=== PATIENT | male | born 2000 | race Caucasian/White ===

== ENCOUNTER 2021-06-15 04:40 | Emergency (ER) | payer MEDICAID ==
[~2021-06-15] VITALS: Ht 172.7 cm; Wt 84.0 kg
[2021-06-15 04:49] VITALS: BP 168/95
[2021-06-15] MEDS ORDERED: FLUORESCEIN SODIUM 1MG/STRIP LEFTEYE ONE (05:15)
[2021-06-15] MEDS ORDERED: TETRACAINE 0.5% OPHTH DROPS 4ML LEFTEYE ONE (05:15)
[2021-06-15] MEDS ORDERED: ERYT1OIN6 LEFTEYE (05:34)
== END 2021-06-15 06:25 | disposition home or self-care (01) ==
LOC: ER 04:40
DX: H00.14 Chalazion left upper eyelid (principal)
CPT/HCPCS: 99283